=== PATIENT | male | born 1985 | race Caucasian/White ===

== ENCOUNTER 2021-03-04 16:57 | Emergency (ER) | payer OTHER ==
[~2021-03-04] VITALS: Ht 175.3 cm; Wt 76.7 kg
[2021-03-04 17:29] LABS: URINE BILIRUBIN NEGATIVE (Negative); URINE BLOOD NEGATIVE (Negative); URINE CLARITY CLEAR; URINE COLOR YELLOW; URINE GLUCOSE-RANDOM NEGATIVE (Negative); URINE KETONES NEGATIVE (Negative); URINE LEUKOCYTES-REFLEX NEGATIVE (Negative); URINE NITRITE-REFLEX NEGATIVE (Negative); URINE PROTEIN NEGATIVE (Negative); URINE SPECIFIC GRAVITY >= 1.030 (1.005-1.030); URINE UROBILINOGEN 0.2 E.U./dl (0.2-1.0)
[2021-03-04] MEDS ORDERED: FLEXERIL PO (17:46)
[2021-03-04 18:26] VITALS: BP 118/76
== END 2021-03-04 18:27 | disposition home or self-care (01) ==
LOC: M.ERS 16:57
PROVIDERS: Nurse Practitioner Family
DX: M54.5 Low back pain (principal); J02.9 Acute pharyngitis, unspecified; R30.0 Dysuria

== ENCOUNTER 2021-06-14 19:09 | Emergency (ER) | payer OTHER ==
[~2021-06-14] VITALS: Ht 175.3 cm; Wt 79.4 kg
[~2021-06-14 19:09] MED LIST: FLEXERIL PO
[2021-06-14] MEDS ORDERED: TRAMADOL 50 MG50 MG (19:18)
[2021-06-14 19:20] VITALS: BP 134/83
[2021-06-14] MEDS ORDERED: APAP W/CODEINE1 TA2 PO ×2 (19:35→21:25)
[2021-06-14] MEDS ORDERED: AMOXIL 875 MG875 M1 PO ×3 (19:35→21:25)
== END 2021-06-14 19:44 | disposition home or self-care (01) ==
LOC: M.ERS 19:09
DX: H66.93 Otitis media, unspecified, bilateral (principal); Z79.899 Other long term (current) drug therapy